=== PATIENT | female | born 1935 | race Caucasian/White ===

== ENCOUNTER 2017-11-19 14:13 | Inpatient (IN) | payer OTHER ==
[~2017-11-19] VITALS: Ht 165.1 cm; Wt 65.9 kg
[2017-11-19 15:22] LABS: BASOPHIL % 0.3 % (0-2)
[2017-11-19 15:25] LABS: CALCIUM 9.8 mg/dL (8.5-10.1); CARBON DIOXIDE 23.5 mmol/L (21-32); CHLORIDE SERUM 102 mmol/L (98-107); CREATININE SERUM 0.9 mg/dL (0.6-1.0); GLUCOSE SERUM 207 mg/dL (74-106); SODIUM SERUM 139 mmol/L (136-145)
[2017-11-19] MEDS ORDERED: ASPIR 8181 MG PO (15:32)
[2017-11-19 15:37] LABS: ALBUMIN 4.2 g/dL (3.4-5.0); ALKALINE PHOSPHATASE 67 U/L (46-116); ALT/SGPT 48 U/L (14-59); AST/SGOT 43 U/L (15-37); BILIRUBIN TOTAL 0.9 mg/dL (0.20-1.00); FREE T4 1.47 ng/dL (0.76-1.46)
[2017-11-19 15:39] LABS: TOTAL PROTEIN, SERUM 8.3 g/dL (6.4-8.2)
[2017-11-19 15:46] LABS: RED CELL DISTRIBUTION WIDTH 15.3 % (11.5-14.5)
[2017-11-19 15:47] LABS: PLATELET COUNT 174 x10^3mcL (130-400)
[2017-11-19 17:28] LABS: CHOLESTEROL/HDL RATIO 2.8; MAGNESIUM 2.1 mg/dL (1.8-2.4); PHOSPHOROUS 3.1 mg/dL (2.5-4.9)
[2017-11-19 17:43] VITALS: BP 156/77
[2017-11-19 21:07] VITALS: BP 150/81
[2017-11-20 06:54] VITALS: BP 153/90
[2017-11-20 07:38] LABS: BASOPHIL % 0.9 % (0-2); PLATELET COUNT 192 x10^3mcL (130-400)
[2017-11-20 07:49] LABS: RED CELL DISTRIBUTION WIDTH 15.1 % (11.5-14.5)
[2017-11-20 08:00] VITALS: BP 159/98
[2017-11-20 08:20] LABS: UA SPECIFIC GRAVITY >=1.030 (1.005-1.035); microscopic required? YES; urine erythrocyte 1+ (NEGATIVE)
[2017-11-20 08:29] LABS: CARBON DIOXIDE 23.5 mmol/L (21-32); CHLORIDE SERUM 106 mmol/L (98-107); CREATININE SERUM 0.8 mg/dL (0.6-1.0); GLUCOSE SERUM 111 mg/dL (74-106); MAGNESIUM 2.2 mg/dL (1.8-2.4); PHOSPHOROUS 3.1 mg/dL (2.5-4.9); POTASSIUM SERUM 3.9 mmol/L (3.5-5.1); SODIUM SERUM 141 mmol/L (136-145)
[2017-11-20 08:38] LABS: AMPHETAMINE QUAL UR NONE DETECTED (NEG <=1000)
[2017-11-20 21:12] VITALS: BP 132/88
[2017-11-21 05:13] VITALS: BP 124/85
[2017-11-21 08:30] VITALS: BP 130/63
[2017-11-21 14:19] VITALS: BP 138/78
[2017-11-21 17:17] VITALS: BP 139/58
[2017-11-21 21:04] VITALS: BP 144/96
[2017-11-22 05:37] VITALS: BP 137/89
[2017-11-22 09:32] VITALS: BP 139/81
[2017-11-22 13:05] VITALS: BP 133/63
[2017-11-22] MEDS ORDERED: TOP50 PO (13:52)
[2017-11-22] MEDS ORDERED: XARELTO20 M1 PO (13:54)
[2017-11-22] MEDS ORDERED: ZES10 PO (13:54)
[2017-11-22 14:27] VITALS: BP 133/63
== END 2017-11-22 16:30 | disposition home or self-care (01) | DRG 291 ==
LOC: ED 14:13 → DU 16:07
PROVIDERS: Emergency Medicine; Family Medicine
DX: I50.43 Acute on chronic combined systolic (congestive) and diastolic (congestive) heart failure (principal); N17.0 Acute kidney failure with tubular necrosis; I48.91 Unspecified atrial fibrillation; K21.9 Gastro-esophageal reflux disease without esophagitis; Z90.710 Acquired absence of both cervix and uterus
CPT/HCPCS: 83880; 84439; 87804; 97110-GP; 97530-GP; G0480; J1644; J1940; J3490; J7030; Q0092

== ENCOUNTER 2019-01-07 23:20 | Inpatient (IN) | payer OTHER ==
[~2019-01-07] VITALS: Ht 165.1 cm; Wt 55.3 kg
[~2019-01-07 23:20] MED LIST: ASPIR 8181 MG PO; TOP50 PO; XARELTO20 M1 PO; ZES10 PO
[2019-01-07 23:31] VITALS: Ht 165.1 cm; Wt 55.3 kg
--- NOTE | 2019-01-08 01:09 | NUR ---
MEDICATIONS GIVEN PER ORDER. VITALS STABLE. R-18 O2-94% P-74. PRE MORPHINE. NO S/S OF DISTRESS. RESPIRSTIONS E/U
--- NOTE | 2019-01-08 01:18 | NUR ---
PT TO CT VIA WC, NAD NOTED.
[2019-01-08 01:20] LABS: BASOPHIL % 0.4 % (0-2); PLATELET COUNT 199 x10^3mcL (130-400)
[2019-01-08 01:24] LABS: RED CELL DISTRIBUTION WIDTH 15.6 % (11.5-14.5)
--- NOTE | 2019-01-08 01:28 | NUR ---
PT RETURNED FROM CT VIA WC, NAD NOTED. PORTABLE XRAY AT BEDSIDE.
[2019-01-08 01:30] LABS: CALCIUM 9.2 mg/dL (8.5-10.1); CARBON DIOXIDE 27.1 mmol/L (21-32); CHLORIDE SERUM 102 mmol/L (98-107); CREATININE SERUM 0.7 mg/dL (0.6-1.0); GLUCOSE SERUM 196 mg/dL (74-106); POTASSIUM SERUM 3.4 mmol/L (3.5-5.1); SODIUM SERUM 138 mmol/L (136-145)
[2019-01-08 01:41] LABS: ALKALINE PHOSPHATASE 82 U/L (46-116); ALT/SGPT 78 U/L (14-59); AST/SGOT 61 U/L (15-37); BILIRUBIN TOTAL 1.2 mg/dL (0.20-1.00); FREE T4 1.11 ng/dL (0.76-1.46); TOTAL PROTEIN, SERUM 8.4 g/dL (6.4-8.2)
--- NOTE | 2019-01-08 01:49 | NUR ---
JOE HERNANDEZ AT BEDSIDE FOR EKG.
--- NOTE | 2019-01-08 03:46 | NUR ---
PATIENT ON GURNEY- NO S/S OF DISTRESS. BREATHING EVEN AND UNLABORED. SAFETY CHECK OF ROOM COMPLETE. CAM IN LOW POSITON, SIDE RAILS UP FOR SAFETY. WILL CONTINUE TO MONITOR.
--- NOTE | 2019-01-08 04:55 | NUR ---
PT IN POSITION OF COMFORT RESPS E/U CALL LIGHT WITHIN REACH
--- NOTE | 2019-01-08 05:46 | NUR ---
PT NEEDS ASSISTANCE VOIDING. PT TOLERATED BEING PLACED ON SURGICAL BEDPAN URINE SPECIMEN COLLECTED, DIPPED, AND SENT TO LAB
--- NOTE | 2019-01-08 06:55 | NUR ---
PT RECIEVED FROM ER IN STABLE CONDITION,MADE COMFORTABLE IN BED WILL ENDORSED TO THE AM NURSE
[2019-01-08 07:01] LABS: UA SPECIFIC GRAVITY 1.025 (1.005-1.035); microscopic required? YES; urine erythrocyte TRACE (NEGATIVE)
--- NOTE | 2019-01-08 07:18 | NUR ---
PT IS NEW ADMISSION. RECEIVED PT'S REPORT FROM LEAVING NURSE. PT REST ON BED AA/O X3, NO COMPLAIN OF PAIN AT THIS TIME. PT BREATHING ON RA, EVEN, UNLABORED. IV SITE SALINE LOCK AT THIS TIME. WILL CONTINUE ADMISSION ASSESSMENT.
[2019-01-08 08:59] VITALS: BP 128/71
--- NOTE | 2019-01-08 12:34 | NUR ---
DR. CARLIN TALKED TO PT, XERALTO WILL BE HELD FOR POSS SURGERY.
[2019-01-08 12:56] VITALS: BP 143/68
[2019-01-08 18:02] VITALS: BP 130/62
--- NOTE | 2019-01-08 18:48 | NUR ---
PT REST ON BED, NO COMPLAIN OF PAIN. PT BREATHING ON RA, EVEN, UNLABORED. XERATOL IS HELD. PT USED BED SKY WITH ASSIST. IV SITE SALINE LOCK PER ORDER.
--- NOTE | 2019-01-08 19:10 | NUR ---
RECEIVED REPORT FROM DAY SHIFT RN. PT RESTING IN BED WITH EYES CLOSED. EASILY AROUSABLE WITH VERBAL STIMULI. ORIENTED X4. NO SOB ON ROOM AIR. NO C/O PAIN AT THIS TIME. IV TO LEFT HAND, INTACT. SAFETY MEASURES IN PLACE. BED IN LOWEST POSITION. SIDE RAILS UP X2. DEMONSTRATED HOW TO USE THE CALL LIGHT FOR ASSISTANCE. CALL LIGHT WITHN REACH.
[2019-01-08 21:40] VITALS: BP 96/63
--- NOTE | 2019-01-09 01:03 | NUR ---
PT C/O SHARP PAIN 10/10 TO RIGHT GROIN. MEDICATED WITH NORCO.
--- NOTE | 2019-01-09 02:03 | NUR ---
PT RESTING WITH EYES CLOSED. NO SOB ON ROOM AIR. NO FACIAL GRIMACING. NO DISTRESS NOTED. CALL LIGHT WITHIN REACH.
[2019-01-09 05:47] VITALS: BP 138/80
--- NOTE | 2019-01-09 07:00 | NUR ---
PT SLEPT WELL DURING SHIFT. NO SOB ON ROOM AIR. NO DISTRESS NOTED. SAFETY MEASURES MAINTAINED. ALL NEEDS ATTENDED TO. CALL LIGHT WITHIN REACH. WILL ENDORSE CARE TO DAY SHIFT RN.
--- NOTE | 2019-01-09 07:20 | NUR ---
PT IS AAOX. RESP EVEN AND UNLABORED. TELE [address] READING AFIB, HR 106. IV CATH N/S LOCKED TO , SITE WNL. SKIN CDI, NO EDEMA. PT DENIES PAIN AND DISCOMFORT AT THIS TIME. CALL LIGHT WITHIN REACH. BED ALARM ON. FALL PROTOCOL IN PLACE.
--- NOTE | 2019-01-09 08:58 | NUR ---
PT HR NOTED INCREASED TO 122 BPM THEN DECREASING TO 106 BPM. METOPROLOL 50MG PO GIVEN. ALL DUE MEDS GIVEN AND TOLERATED WELL. RESP EVEN AND UNLABORED. NO SOB OR COUGH NOTED. PT DENIES PALPITATIONS, CHEST PAIN OR PRESSURE. PT HAS PAIN 7/10 R THIGH. NORCO WILL BE GIVEN. CALL LIGHT WITHIN REACH.
[2019-01-09 09:13] LABS: CALCIUM 8.7 mg/dL (8.5-10.1); CARBON DIOXIDE 28.2 mmol/L (21-32); CHLORIDE SERUM 105 mmol/L (98-107); CREATININE SERUM 0.7 mg/dL (0.6-1.0); GLUCOSE SERUM 123 mg/dL (74-106); POTASSIUM SERUM 4.4 mmol/L (3.5-5.1); SODIUM SERUM 139 mmol/L (136-145)
[2019-01-09 10:01] VITALS: BP 130/81
--- NOTE | 2019-01-09 12:30 | NUR ---
PT IS SLEEPING IN BED BUT EASILY AROUSABLE. RESP EVEN AND UNLABORED. NO DISTRESS NOTED. CALL LIGHT WITHIN REACH.
[2019-01-09 14:12] VITALS: BP 121/68
--- NOTE | 2019-01-09 15:36 | NUR ---
PT IS IN BED AWAKE. RESP EVEN AND UNLABORED. NO S/S OF DISTRESS NOTED. DENIES PAIN OR DISCOMFORT. CALL LIGHT WITHIN REACH.
[2019-01-09 17:56] VITALS: BP 160/79
--- NOTE | 2019-01-09 18:45 | NUR ---
PT IS AAOX4. TELE [address] READING NSR. RESP EVEN AND UNLABORED. NO DISTRESS NOTED. DENIES PAIN. IV CATH TO LH N/S LOCKED. SITE WNL. PT HAS R HIP FRACTURE BUT WAS ABLE TO TURN AND REPOSITION SELF THROUGH OUT DAY. WILL ENDORSE ALL CARE TO NOC RN.
--- NOTE | 2019-01-09 18:50 | NUR ---
NORCO PO GIVEN FOR LEG PAIN 02/25. FLUIDS ENCORAGED. PT TURNED AND REPOSITIONED FOR COMFORT. RESP EVEN AND UNLABORED. CALL LIGHT WITHIN REACH.
--- NOTE | 2019-01-09 19:39 | NUR ---
RECEIVED PT FROM DAY SHIFT RN. PT AAOX4 DENIES HEADACHE OR DIZZINESS. TELE #25 AFIB. PT DENIES CHEST PAIN OR PRESSURE. LUNG SOUNDS DIMININSHED ON RA WITH NO SOB NOTED. RIGHT KNEE EDEMA NOTED. IV LEFT HAND PATENT, SL. GENERALIZED WEAKNESS NOTED. NO SIGNS OF ACUTE DISTRESS NOTED. SAFETY PRECAUTIONS IN PLACE. CALL BUTTON WITHIN REACH. WILL CONTINUE TO MONITOR.
[2019-01-09 21:38] VITALS: BP 144/76
--- NOTE | 2019-01-09 22:25 | NUR ---
PER PATIENT REQUESTED TO SPEAK TO DOCTOR BEFORE SIGNING THE CONSENT FOR SURGERY TOMORROW. WILL ENDORSE IN THE AM.
--- NOTE | 2019-01-10 00:32 | NUR ---
PT REPORTED HAVING RIGHT KNEE PAIN, MEDICATED PER EMAR. WILL CONTINUE TO MONITOR.
--- NOTE | 2019-01-10 00:51 | NUR ---
PLACED PT ON THE BEDPAN, AND REPOSITIONED.
[2019-01-10 05:36] VITALS: BP 154/83
--- NOTE | 2019-01-10 05:37 | NUR ---
PT REPORTED HAVING RIGHT KNEE PAIN, MEDICATED PER EMAR. WILL CONTINUE TO MONITOR.
--- NOTE | 2019-01-10 06:29 | NUR ---
PT SLEPT MOST OF THE NIGHT WITH NO SIGNS OF DISTRESS. IV PATENT, SL. BREATHING EVEN AND UNLABORED ON RA WITH NO SOB NOTED. PT REPORTED HAVING RIGHT KNEE PAIN THROUGHOUT THE NIGHT, MEDICATED PER EMAR WITH RELIEF. CALL BUTTON WITHIN REACH. SAFETY PRECAUTIONS IN PLACE. WILL CONTINUE TO MONITOR AND ENDORSE CARE TO DAY SHIFT RN.
[2019-01-10 07:00] LABS: BASOPHIL % 0.5 % (0-2); PLATELET COUNT 147 x10^3mcL (130-400)
[2019-01-10 07:21] LABS: CALCIUM 8.3 mg/dL (8.5-10.1); CARBON DIOXIDE 26.7 mmol/L (21-32); CHLORIDE SERUM 105 mmol/L (98-107); CREATININE SERUM 0.6 mg/dL (0.6-1.0); GLUCOSE SERUM 85 mg/dL (74-106); POTASSIUM SERUM 4.5 mmol/L (3.5-5.1); SODIUM SERUM 139 mmol/L (136-145)
--- NOTE | 2019-01-10 07:33 | NUR ---
PT AWAKE, BREATHING EVEN AND UNLABORED WITH NO SIGNS OF DISTRESS NOTED. IV PATENT, SL. NO SIGNS OF ACUTE DISTRESS. SAFETY PRECAUTIONS IN PLACE. ENDORSED CARE TO DAY SHIFT RN, ALL QUESTIONS ADDRESSED.
[2019-01-10 07:54] LABS: RED CELL DISTRIBUTION WIDTH 15.2 % (11.5-14.5)
--- NOTE | 2019-01-10 09:07 | NUR ---
MORPHINE 1MG IVP GIVEN FOR R HIP PAIN 03/27. RESP EVEN AND UNLABORED. FLUIDS ENCOURAGED. HEPARIN HELD DUE TO PROCEDURE TODAY. ZESTRIL HELD DUE TO MD ORDERS. NYDIA WIPES APPLIED FOR PROCEDURE. PT TAUGHT TO TURN AND REPOSITION SELF FREQUENTLY. PT DEMONSTRATED UNDERSTANDING. CALL LIGHT WITHIN REACH. BED ALARM ON.
--- NOTE | 2019-01-10 09:31 | NUR ---
RECEIVED CALL FROM DR. CARLIN, THE WOULD LIKE THE PT TO HAVE METOPROLOL 5MG IVP X1 NOW FOR HIGH HR 98-100BPM. DR. CARLIN STATED HE WILL PUT THE ORDER IN.
--- NOTE | 2019-01-10 10:11 | NUR ---
LOPRESSOR 5MG IVP GIVEN FOR INCREASED HR. PT DENIES CHEST PAIN OR PRESSURE. RESP EVEN AND UNLABORED. CALL LIGHT WITHIN REACH. BED IN LOW POSITION.
--- NOTE | 2019-01-10 12:27 | NUR ---
PT TAKEN TO O/R FOR RIGHT HIP REDUCTION.
[2019-01-10 12:33] VITALS: BP 150/91
--- NOTE | 2019-01-10 15:56 | NUR ---
PT BACK FROM PROCEDURE, R HIP ORIF WITH BIPOLAR PROTHESIS. PT HAS ON INCISION ON R THIGH CLOSED WITH SUTURES ANS ROLY COVERED WITH APDAPTIC 4X4 AND TAPE. CDI. PT RECEIVED ONE LITER LR. EBL 200ML. ALFREDO CATH PLACE, NOW DRAINING CLEAR YELLOW URINE TO GRAVITY. STAT LOCK TO L THIGH. VS: 97/4, 91, 18, 126/64, 98% ON R/A. PT DENIES PAIN OR DISCOMFORT AT THIS TIME. RESP EVEN AND UNLABORED. NO DISTRESS NOTED. P/T CALLED TO CONFIRM PLACEMENT OF TRAPEZE. BED IN LOWEST POSTION. CALL LIGHT WITHIN REACH. BED ALARM ON.
--- NOTE | 2019-01-10 17:15 | NUR ---
TRAPEZE APPLIED TO BED AND PT EDUCATED BY P/T ON HOW TO USE IT. PT DENIES PAIN AT THIS TIME. RESP EVEN AND UNLABORED. PT WAS ABLE TO REPOSITION SELF FOR COMFORT. CALL LIGHT WITHIN REACH. BED ALARM ON. FRIEND AT BEDSIDE VISITING.
[2019-01-10 18:02] VITALS: BP 122/57
--- NOTE | 2019-01-10 18:20 | NUR ---
REPORTED TO DR. MARIANO PT IS RECEIVING MORPHINE AND NORCO WITH C/O CONSTIPATION. RECEIVED ORDER FOR COLACE 100MG PO BID. ORDER NOTED AND CARRIED OUT. PT MADE AWARE.
--- NOTE | 2019-01-10 18:32 | NUR ---
PT IS AAOX4. RESP EVEN AND UNLABORED. TELE [address] READING AFIB. PT IS S/P ORIF WITH INCISION TO R HIP COVERED WITH ABDAPTIC 4X4 AND TAPE, AREA IS CDI. IV TO LH PATENT, NS LOCKED. SITE WNL. NO S/S OF INFECTION NOTED. PT DENIES PAIN AT THIS TIME. CALL LIGHT WITHIN REACH. BED ALARM ON. BED IN LOWEST POSITION. WILL ENDORSE ALL CARE TO NOC RN.
--- NOTE | 2019-01-10 18:55 | NUR ---
CHANGE DRESSING TO PT GTUBE SITE. REMOVED OLD DRESSING, CLEANSED AREA WITH NS, PATTED DRY AND APPLIED GAUZE AND PAPER TAPE. AREA IS CDI. PT NOTED WITH 30ML RESIDUAL. RESIDUAL PUT BACK INTO GTUBE. PT TOLERATED PROCEDURE WELL.
--- NOTE | 2019-01-10 19:45 | NUR ---
RECEIVED PT FROM DAY SHIFT RN. PT AAOX4 DENIES HEADACHE OR DIZZINESS. TELE #25 AFIB HR 95. PT DENIES CHEST PAIN OR PRESSURE. LUNG SOUNDS DIMININSHED ON RA WITH NO SOB NOTED. RIGHT HIP S/P COVERED IN DRESSING, CDI. ABDUCTOR PILLOW IN PLACE. IV LEFT HAND PATENT, SL. F/C IN PLACE DRAINIG YELLOW URINE. GENERALIZED WEAKNESS NOTED. NO SIGNS OF ACUTE DISTRESS NOTED. SAFETY PRECAUTIONS IN PLACE. CALL BUTTON WITHIN REACH. WILL CONTINUE TO MONITOR.
--- NOTE | 2019-01-10 21:10 | NUR ---
PT REPORTED HAVING PAIN ON RIGHT HIP 05/28. MEDICATED PER EMAR. WILL MONITOR.
[2019-01-10 21:25] VITALS: BP 139/74
--- NOTE | 2019-01-11 00:17 | NUR ---
PT RESTING, BREATHING EVEN AND UNLABORED WITH NO SOB NOTED. NO SIGNS OF ACUTE DISTRESS NOTED. SAFETY PRECAUTIONS IN PLACE. CALL BUTTON WITHIN REACH. WILL CONITNUE TO MONITOR.
--- NOTE | 2019-01-11 02:50 | NUR ---
PT RESTING, BREATHING EVEN AND UNLABORED NO SOB NOTED. NO SIGNS OF ACUTE DISTRESS NOTED. SAFETY PRECAUTIONS IN PLACE. WILL MONITOR.
--- NOTE | 2019-01-11 05:38 | NUR ---
PT SLEPT MOST OF THE NIGHT WITH NO SIGNS OF DISTRESS. IV PATENT, SL. BREATHING EVEN AND UNLABORED ON RA WITH NO SOB NOTED. PT REPORTED HAVING RIGHT KNEE PAIN THROUGHOUT THE NIGHT, MEDICATED PER EMAR WITH RELIEF. RIGHT HIP S/P WITH INCISION AND COVERED W/ DRESSING. ABDUCTOR PILLOW IN PLACE. CALL BUTTON WITHIN REACH. SAFETY PRECAUTIONS IN PLACE. WILL CONTINUE TO MONITOR AND ENDORSE CARE TO DAY SHIFT RN.
[2019-01-11 06:12] VITALS: BP 149/90
--- NOTE | 2019-01-11 06:48 | NUR ---
PT REPORTED RIGHT KNEE PAIN, MEDICATED PER EMAR, WILL CONTINUE TO MONITOR.
[2019-01-11 06:58] LABS: BASOPHIL % 0.2 % (0-2); PLATELET COUNT 169 x10^3mcL (130-400)
[2019-01-11 07:08] LABS: RED CELL DISTRIBUTION WIDTH 15.1 % (11.5-14.5)
--- NOTE | 2019-01-11 07:14 | NUR ---
RECEIVED REPORT FROM CONCHIS MANCIA. PT RESTING COMFORTABLY IN BED WITH TRAPEZE IN PLACE. ADDUCTOR PILLOW IN PLACE. TELE # [address]. PT DENIES CHEST PAIN. PT ON ROOM AIR. NO C/O SOB AND NO DSITRESS NOTED. IV TO LT HAND IS SALINE LOCKED. NO REDNESS OR PAIN. INCISION TO RT HIP IS COVERED WITH ISLAND DRESSING. CDI. NO C/O PAIN. ALL QUESTIONS AND CONCERNS ADDRESSED.
[2019-01-11 07:17] LABS: CALCIUM 8.1 mg/dL (8.5-10.1); CARBON DIOXIDE 22.9 mmol/L (21-32); CHLORIDE SERUM 103 mmol/L (98-107); CREATININE SERUM 0.6 mg/dL (0.6-1.0); GLUCOSE SERUM 127 mg/dL (74-106); POTASSIUM SERUM 4.1 mmol/L (3.5-5.1); SODIUM SERUM 138 mmol/L (136-145)
--- NOTE | 2019-01-11 07:37 | NUR ---
PT AWAKE DENIES PAIN. NO SIGNS OF DISTRESS NOTED. ENDORSED CARE TO DAY SHIFT RN, ALL QUESTIONS ADDRESSED.
--- NOTE | 2019-01-11 08:09 | NUR ---
SPOKE WITH DR MARIANO TO NOTIFY OF PT SUSTAINING HR > 140. DR MARIANO INSTRUCTED TO NOTIFY DR CARLIN.
--- NOTE | 2019-01-11 09:22 | NUR ---
DR MARIANO IN TO SEE AND ASSESS PATIENT .
[2019-01-11 09:42] VITALS: BP 101/59
--- NOTE | 2019-01-11 10:13 | NUR ---
NOTIFIED DR CARLIN THAT PT HR IS NOW IN THE 90S. IV INFILTRATED AND THEREFORE IV LOPRESSOR AND BOLUS HAVE NOT BEEN GIVEN. DR CARLIN OK WITH HR NOW AND ORDERED OK TO NOT GIVE BOLUS AND IV LOPRESSOR.
[2019-01-11 12:49] VITALS: BP 117/64
[2019-01-11 18:01] VITALS: BP 133/48
--- NOTE | 2019-01-11 19:00 | NUR ---
PT RESTING COMFORTABLY IN BED WITH TRAPEZE AT BEDSIDE. ABDUCTOR PILLOW IN PLACE. NO C/O PAIN THROUGHOUT THE DAY. IV TO LFA IS PATENT AND INTACT. NO REDNESS OR PAIN. TELE # [address] PT DENIES CHEST PAIN. PT ON ROOM AIR. NO C/O SOB AND NO DISTRESS NOTED. WILL ENDORSE ALL TO ONCOMING NURSE.
--- NOTE | 2019-01-11 19:08 | NUR ---
DR CARLIN PAGED TO NOTIFY OF PT HR FLUCTUATING FROM 105-130. AWAITING CALL BACK.
--- NOTE | 2019-01-11 19:30 | NUR ---
RECEIVED PT FROM DAY SHIFT RN. PT IS AA&O X4 AND ABLE TO FOLLOW COMMANDS. PT DENIES CHEST PAIN AND SHORTNESS OF BREATH ON ROOM AIR. NO USE OF ACCESSORY MUSCLES OR LABORED BREATHING ON ASSESSMENT. LUNG SOUNDS ARE CTA ON ROOM AIR. ABDUCTION PILLOW IN PLACE. TRAPEZE BAR IN PLACE. BANDAGE TO RIGHT HIP SURGICAL SITE CLEAN DRY AND INTACT. PT HAS A LFA IV THAT IS CLEAN DRY AND INTACT AT THIS TIME. TELE MONITOR IS IN PLACE. PT DENIES ANY PAIN AT THIS TIME. SAFFETY MEASURES IN EFFECT. BED IN LOWEST POSITION. CALL LIGHT WITHIN REACH. WILL CONTINUE TO MONITOR.
[2019-01-11 21:33] VITALS: BP 121/55
--- NOTE | 2019-01-11 21:33 | NUR ---
PT TEMPERATURE 100. ICE PACKS GIVEN. WILL REASSESS.
--- NOTE | 2019-01-11 22:31 | NUR ---
PT COMPLAINED OF HIP PAIN AT SURGICAL SITE. 04/27. ADMINISTERED NORCO. (SEE MAR). COMFORT MEASURES IN PLACE. RELAXATION TECHNIQUES AND DEEP BREATHING ENCOURAGED.
[2019-01-12 06:14] VITALS: BP 114/57
[2019-01-12 06:29] LABS: BASOPHIL % 0.4 % (0-2); PLATELET COUNT 180 x10^3mcL (130-400)
[2019-01-12 06:32] LABS: RED CELL DISTRIBUTION WIDTH 15.3 % (11.5-14.5)
--- NOTE | 2019-01-12 06:42 | NUR ---
PT SLEPT THROUGHOUT THE NIGHT NIGHT. DENIES CHEST PAIN OR SHORTNESS OF BREATH. CALL LIGHT WITHIN REACH. WILL ENDORSE TO DAY SHIFT RN.
[2019-01-12 07:06] LABS: CALCIUM 8.4 mg/dL (8.5-10.1); CARBON DIOXIDE 26.6 mmol/L (21-32); CHLORIDE SERUM 104 mmol/L (98-107); CREATININE SERUM 0.7 mg/dL (0.6-1.0); GLUCOSE SERUM 99 mg/dL (74-106); POTASSIUM SERUM 4.4 mmol/L (3.5-5.1); SODIUM SERUM 137 mmol/L (136-145)
--- NOTE | 2019-01-12 07:18 | NUR ---
RECEIVED REPORT FROM ANN MARIE MANCIA. PT RESTING COMFROTABLY IN BED WITH TRAPEZE AT BEDSIDE. IV TO LFA IS PATENT AND INTACT. NO REDNESS OR PAIN. TELE #[address] PT DENIES CHEST PAIN. PT ON ROOM AIR. NO C/O SOB AND NO DISTRESS NOTED. ABDUCTOR PILLOW IN PLACE. ALL QUESTIONS AND CONCERNS ADDRESSED.
[2019-01-12 10:04] VITALS: BP 105/69
[2019-01-12 13:00] VITALS: BP 109/46
--- NOTE | 2019-01-12 15:17 | NUR ---
IN TO SEE PATIENT AND ASSESS NEEDS. PT RESTING COMFORTABLY IN BED WITH FAMILY AT BEDSIDE. ALL NEEDS MET.
[2019-01-12 17:14] VITALS: BP 125/62
--- NOTE | 2019-01-12 19:30 | NUR ---
RECEIVED PT RESTING IN BED, AOX4, DENIES ROBLES/DIZZINESS. PT S/P ORIF RT HIP, ISLAND DSG TO RT HIP, CDI. ABDUCTOR PILLOW IN PLACE, CAP REFILL < 3SEC. TELE #25 A FIB, 94, PT REPORTS TAKING XARELTO AT HOME, CURRENTLY A FIB MANAGED WITH METOPROLOL 50MG, WILL MEDICATE PER ORDER. PT ON HEP SQ. RESP EVEN AND UNLABORED ON RA, DENIES SOB. ABD SOFT, FLAT, DENIES ABD PAIN. PT WITH ALFREDO CTAH DRAINING YELLOW URINE TO GRAVITY, DENIES DYSURIA. GENERALIZED WEAKNESS, TRAPEZE IN PLACE. PT REPORTS PAIN UNDER CONTROL AT THIS TIME. IV SITE TO LFA, SALINE LOCKED. NO REDNESS, SWELLING OR PAIN NOTED. ALL COMFORT AND SAFETY MEASURES PROVIDED FOR, CALL LIGHT WITHIN REACH, BED IN LOWEST POSITION, WILL CONTINUE TO MONITOR.
--- NOTE | 2019-01-12 19:45 | NUR ---
REPORT GIVEN TO KEREN MANCIA. PT RESTING COMFORTABLY IN BED WITH TRAPEZE AT BEDSIDE. ALL NEEDS MET. ALL QUESTIONS AND CONCERNS ADDRESSED. ALL CARES ENDORSED.
[2019-01-12 20:46] VITALS: BP 105/54
--- NOTE | 2019-01-13 00:14 | NUR ---
PT USED CALL LIGHT TO REQUEST PAIN MEDICATION, WILL MEDICATE PER ORDER.
--- NOTE | 2019-01-13 05:15 | NUR ---
PT RESTED IN INTERVALS DURING SHIFT, NO ACUTE CHANGES OCCURRING OVERNIGHT. PT MEDICATED X1 WITH NORCO WITH GOOD RELIEF. PT STILL HAS NOT HAD A BM, PT CONTINUES WITH ALFREDO CATH DRAINING YELLOW URINE. ALFREDO CATH CURRENTLY CLAMPED TO BEGIN BLADDER TRAINING. IV SITE REMAINS PATENT TO LFA SALINE LOCKED. NO REDNESS, SWELLING OR PAIN NOTED. ALL COMFORT AND SAFETY MEASURES PROVIDED FOR, CALL LIGHT WITHIN REACH, BED IN LOWEST POSITION, WILL CONTINUE TO MONITOR.
[2019-01-13 05:34] VITALS: BP 124/65
[2019-01-13 06:21] LABS: PLATELET COUNT 222 x10^3mcL (130-400)
[2019-01-13 06:43] LABS: ALKALINE PHOSPHATASE 73 U/L (46-116); ALT/SGPT 58 U/L (14-59); AST/SGOT 63 U/L (15-37); CALCIUM 8.3 mg/dL (8.5-10.1); CARBON DIOXIDE 26.7 mmol/L (21-32); CHLORIDE SERUM 104 mmol/L (98-107); CREATININE SERUM 0.6 mg/dL (0.6-1.0); PHOSPHOROUS 2.4 mg/dL (2.5-4.9); POTASSIUM SERUM 4.1 mmol/L (3.5-5.1); SODIUM SERUM 138 mmol/L (136-145)
[2019-01-13 07:02] LABS: RED CELL DISTRIBUTION WIDTH 14.8 % (11.5-14.5)
--- NOTE | 2019-01-13 07:36 | NUR ---
ENDORSED ALL CARE TO DAYSHIFT NURSE, NO ACUTE DISTRESS NOTED. ALL QUESTIONS AND CONCERNS ADDRESSED, CALL LIGHT WITHIN REACH, BED IN LOWEST POSITION.
--- NOTE | 2019-01-13 07:53 | NUR ---
CALLED AND LEFT MESSAGE WITH DR MARIANO FOR ORDERS FOR NORCO TO BE RENEWED. PATIENT IS ALREADY REQUESTING FOR PAIN TO [facility]. WILL AWAIT A CALL BACK. JASPREET IS ALERT AND ORIENTED TIMES FOUR. ALFREDO IN PLACE AND BLADDER TRAINING STARTED. SHE HAS BEEN ON HEPARIN AND HX OF HTN AND AFIB. SHE WAS ON XARALTO PRIOR TO THE ADMISSION. HX IS SHE WAS AT THE STORE RETURNING HER CART AHD SHE FELL BREAKING HER HIP. SHE HAD SURGERY WITH DR KAISER. SHE HAS BEEN UP WITH PT BUT IS AFRAID TO USE THE TRAPEZE DUE TO A PREVIOUS MALFUNCTION WITH THE DEVICE. SHE HAS BEEN WITHOUT STOOL SINCE THE .
[2019-01-13 07:55] LABS: GLUCOSE SERUM 89 mg/dL (74-106); MAGNESIUM 2.1 mg/dL (1.8-2.4)
[2019-01-13 08:32] LABS: ALBUMIN 2.1 g/dL (3.4-5.0); TOTAL PROTEIN, SERUM 5.7 g/dL (6.4-8.2)
--- NOTE | 2019-01-13 09:03 | NUR ---
LEFT MESSAGE FOR DR DUARTE FOR REORDER OF NORCO FOR PAIN.
[2019-01-13 09:49] VITALS: BP 107/55
--- NOTE | 2019-01-13 09:53 | NUR ---
CALLED FOR [facility]HELSEA ORDER AGAIN AND LEFT MESSAGE AND AWAITING CALL BACK AT THIS TIME.
--- NOTE | 2019-01-13 12:02 | NUR ---
SPOKE WITH THE COVERING KIRAN DUARTE AND ORDER OBTAINED AND PLACED FOR CONTINUATION OF THE NORCO FOR PAIN.
[2019-01-13 12:33] VITALS: BP 95/65
--- NOTE | 2019-01-13 13:35 | NUR ---
Intervention/RDN Recommendation(s): 1. Continue on regular diet as tolerated.
--- NOTE | 2019-01-13 13:35 | NUR ---
Initial Nutrition Assessment- Dx: rt hip fracture, a-fib PMHx: a-fib PSHx: none Labs: (01/13) Na 138, K 4.1, Glu 89, BUN 21 H, Cr 0.6, Alb 2.1 L, Ca 8.3 L, Phos 2.4 L, H/H 10.3/30 Meds: ambien, Ativan, colace, ferrous sulfate, Lopressor, morphine sulfate, norco, phenergan, sodium chl 0.9%, Tylenol Diet: regular PO Intakes: (01/08) B: 20%, L: 80%, D: 50%; (01/09) D: 50%, (01/10) NPO at B; L: 40%; (01/11) B: 40%, L: 60%; (01/12) 100%, (01/13) B: 100%; overall average 60%, inadquate Ht: 165.1 cm/65 inches/5'5" Wt: 55.338 kg/122 pounds BMI: 20.3 kg/m2, underweight for age (> 65 y/o) IBW: 125 pounds/57 kg %IBW: 95% UBW: 150# Age: 83 Food Allergies: NKFA Skin: Theo 20 Edema: none noted GI: Last BM per nursing documentation, no BM since 01/11. Pt admitted with dx: rt hip fracture, a-fib. Per physician progress note (01/11), Pt is s/p hip ORIF POD #2, had episode of AFIB RVR in 140s that morning, improved after receiving routine metoprolol. Pt denies any chest pain or SOB. Pt to continue PT/OT. RDN visited with Pt, Pt was up, awake, reading, very pleasant. She had a tuna salad, scalloped potatoes, and ice cream for lunch. She ate half a sandwich, a few scoops of potatoes, and all of her ice cream. She reports feeling full and satisfied with just having eaten that. She declines offer for ONS. She denies diet/food-related concerns and questions at this time. Problem with: N: no V: no D: no C: no Problems with: Chewing: no Swallowing: no Current appetite: good Recent wt changes: Pt reports having lost ~28#. She states that she used to weigh 150# but then was admitted to the hospital for heart-related issues (unable to recall date/time), and ever since then she started to lose wt and was unable to put the weigh back on despite not making any changes to her diet. Vitamin/Supplement: none Special Diet at Home: none. Her PCP advised to her to follow a heart healthy diet but she declined and insists of eating whatever she wants because she is getting old. Physical activity: had been doing some light walking Education: N/A Estimated Nutritional Needs Based on actual body weight of 55 kg. Energy: 0352-9931 kcal/d (30-35 kcal/kg for underweight, older adult maintenance) Protein: 55-66 gm/d (1-1.2 gm/kg for underweight, older adult maintenance) Fluid: 7504-8757 mL/d (1 mL/kcal) or per MD. Nutrition Diagnosis 1. Inadequate oral intakes related to poor appetite as evidenced by overall average of 40%, Pt meeting < 75% estimated needs. Intervention/RDN Recommendation(s): 1. Continue on regular diet as tolerated. Monitor/Evaluate Goal: Intake via PO intakes to meet at least 75% of estimated needs with acceptable tolerance within 2-3 days. Monitor: PO intakes and/or nutrition support tolerance, Labs, GI function, Skin integrity, Weights. F/U in 3-5 days as moderate risk (01/16-)
[2019-01-13 13:47] LABS: ATYPICAL LYMPH 1 %; BAND NEUTROPHIL 0 % (0-10); BASOPHIL 0 % (0-2); MONOCYTE 4 % (0-7); PLATELET MORPHOLOGY PLATELETS DECREASED; SEGMENTED NEUTROPHILS 60 % (37-75)
[2019-01-13 13:49] LABS: rbc morphology (normal/abnorm) ABNORMAL (NORMAL)
--- NOTE | 2019-01-13 17:09 | NUR ---
THE NORCO GIVEN EARLIER WAS EFFECTIVE AND PATIENT HAS BEEN GIVEN THE XARALTO POST A CALL PLACED TO DR MARIANO PER CARDIOLOGY REQUEST TO CONTINUE. THE HEPARIN WAS DISCONTINUED AND WILL CONTINUE TO MONITOR INDICATED.
[2019-01-13 18:26] VITALS: BP 100/50
--- NOTE | 2019-01-13 19:30 | NUR ---
RECEIVED PT RESTING IN BED, AOX4, DENIES ROBLES/DIZZINESS. PT S/P ORIF RT HIP (01/10), DSG IN PLACE TO RT HIP CDI. TELE #25, A FIB, HR 94, PT ON XARELTO. PULSES PALPABLE BILAT, DENIES NUMBNESS/TINGLING IN FEET. RESP EVEN AND UNLABORED ON RA, DENIES SOB. ABD SOFT, FLAT, DENIES ABD PAIN. PT HAS NOT HAD A BM SINCE 01/11, DENIES ABD PAIN. WILL PROVIDE NORCO. PT WITH ALFREDO CATH DRAINING NIC URINE, DENIES DYSURIA. PT WITH TRAPEZE ABOVE BED, ABDUCTOR PILLOW IN PLACE. IV SITE TO [facility], SALINE LOCKED AT THIS TIME. ALL COMFORT AND SAFETY MEASURES PROVIDED FOR, CALL LIGHT WITHIN REACH, BED IN LOWEST POSITION, WILL CONTINUE TO MONITOR.
[2019-01-13 21:45] VITALS: BP 139/61
--- NOTE | 2019-01-13 23:00 | NUR ---
UPON ASSESSMENT OF PT, PT RESTING IN BED WATCHING TV. PT REPORTS PAIN UNDER CONTROL AT THIS TIME, SIMPLY REQUESTING TO BE REPOSITIONED SHE IS READY FOR BED. PT PULLED UP AND CALL COMFORT AND SAFETY MEASURES PROVIDED FOR, CALL JEISON RODRÍGUEZ, BED IN LOWEST POSITION, WILL CONTINUE TO MONITOR.
--- NOTE | 2019-01-14 05:10 | NUR ---
PT RESTED IN INTERVALS DURING SHIFT, NO ACUTE CHANGES OCCURRING OVERNIGHT. PT DENIES PAIN DURING SHIFT, IV SITE REMAINS PATENT TO LFA, NO REDNESS, SWELLING OR PAIN NOTED. PT HAS NOT HAD A BM DURING SHIFT, PT RECEIVED COLACE DURING NIGHT WITH SCHEDULED MEDS. PT CALM AND COOPERATIVE WITH CARE AT THIS TIME, ABDUCTOR PILLOW REMAINS IN PLACE. CAP REFILL <3SEC. DENIES NUMBNESS/TINGLING IN FEET. CALL LIGHT WIHTIN REACH, BED IN LOWEST POSITION, WILL CONTINUE TO MONITOR.
[2019-01-14 05:30] VITALS: BP 123/61
--- NOTE | 2019-01-14 07:30 | NUR ---
RECEIVED PT FROM AUTOMOTIVE GENERAL MANAGER RN. Martín/DOMITILA. TELE#25. DENIES CHEST PAIN/PRESSURE. RESPIRATIONS EQUAL AND UNLABORED ON RA. DENIE SOB. PT DENIES ANY PAIN AT THIS TIME. RT HIP DRESSING CDI, NO DRAINAGED NOTED. ABDDUCTOR PILLOW IN PLACE, TRAPEZE IN PLACE ABOVE BED. IV TO LFA SALINE LOCKED. NO REDNESS OR SWELLING NOTED. WILL CONTINUE TO MONITOR. CALL LIGHT IN REACH. BED IN LOWEST POSITION.
--- NOTE | 2019-01-14 07:47 | NUR ---
ENDORSED ALL CARE TO DAYSHIFT NURSE, NO ACUTE DISTRESS NOTED. ALL QUESTIONS AND CONCERNS ADDRESSED. ALL COMFORT AND SAFETY MEASURES PROVIDED FOR, CALL LIGHT WITHIN REACH, BED IN LOWEST POSITION.
--- NOTE | 2019-01-14 08:47 | NUR ---
PT SITTING UP IN BED. NO ACUTE RESP DISTRESS NOTED ON RA. GIVEN PO MEDS. TOLERATED WELL. PT C/O PAIN 04/27 TO RT HIP. MEDICATED PER EMAR. PT TOLERATED WELL. PT GOSIA AT BEDSIDE. PT HR 140 PER GOSIA WILL WORK WITH PT A LITTLE LATER. PT DENIES CHEST PAIN/PRESSURE. WILL CONTINUE TO MONITOR. CALL LIGHT IN REACH. BED IN LOWEST POSITION.
[2019-01-14 08:54] VITALS: BP 124/50
--- NOTE | 2019-01-14 10:31 | NUR ---
PT WORKING WITH PHYSCIAL THERAPY. TOLERATED WELL. PT SITTING UP IN CHAIR. PT DENIES ANY PAIN AT THIS TIME. NO ACUTE RESP DISTRESS NOTED ON RA. PT INSTRUCTED TO USE CALL LIGHT WHEN NEEDING ASSISTANCE BACK TO BED. PT ENCOURAGED TO SIT IN CHAIR UNTIL LUNCH TIME. WILL CONTINUE TO MONITOR. CALL LIGHT IN REACH. BED IN LOWEST POSITION.
--- NOTE | 2019-01-14 13:30 | NUR ---
PT SITTING UP IN CHAIR AT BEDSIDE. PT ASKING TO BE PUT BACK IN BED. CALLED SERG PHYSICAL THERAPIST TO ASSIST PT BACK TO BED. NO ACUTE RESP DISTRESS NOTED ON THIS TIME. PT DENIES ANY PAIN AT THIS TIME. WILL CONTINUE TO MONITOR. CALL LIGHT IN REACH. BED IN LOWEST POSITION.
--- NOTE | 2019-01-14 16:27 | NUR ---
PHYSICAL THERAPY DAILY NOTES CO-SIGN All documentation done by the Single Wire Saw Operator for 01/14/19 has been reviewed. I agree with the documentation. Reviewed/Co-Signed by: Daphnie Frazier PT Documentation Done by:GOSIA VALDES PTA
--- NOTE | 2019-01-14 16:47 | NUR ---
PHYSICAL THERAPY DAILY NOTES CO-SIGN All documentation done by the Machine Set Up Operator [employer] for 01/14/19 has been reviewed. I agree with the documentation. Reviewed/Co-Signed by: Bryan Sosa PT Documentation Done by:CORNELIO MIRELES CONFERENCE COORDINATOR FOR 01/12/2019
[2019-01-14 17:45] VITALS: BP 120/55
--- NOTE | 2019-01-14 18:50 | NUR ---
PT IN BED RESTING. NO ACUTE RESP DISTRESS NOTED ON RA. IV SALINE LOCKED TO LFA. NO REDNESS OR SWELLING NOTED. PT DENIES ANY PAIN AT THIS TIME. DRESSING TO RT HIP CDI. ABDUCTOR PILLOW IN PLACE. TRAPEZE IN PLACE OVER BED. WILL ENDORSE TO CHROMIUM PLATER RN. CALL LIGHT IN REACH. BED IN LOWEST POSITION.
--- NOTE | 2019-01-14 19:28 | NUR ---
PT RECEIVED A/O X4, ABLE TO MAKE NEEDS KNOWN. TELE #25, DENIES ANY CP/PRESSURE. PULSES PALAPBLE, EDEMA TO RT KNEE. BREATHING IS EVEN AND UNLABORED ON RA, DENIES SOB, NO RESP DISTRESS NOTED. ABD SOFT AND NONDISTENDED, DENIES ANY N/V. ALFREDO CATH IN PLACE DRAINING TO GRAVITY, NIC COLORED URINE NOTED. GENERALIZED WEAKNESS. S/P RT HIP ORIF ON 01/10/19, RT HIP CLOSED WITH ROLY AND COVERED WITH ISLAND DRSG, CDI. ABDUCTOR PILLOW IN PLACE; TRAPEZE IN PLACE ABOVE BED. PT DENIES ANY PAIN AT THIS TIME. SL TO LFA, PATENT AND INTACT, SITE FREE FROM REDNESS OR SWELLING. BED IN LOWEST SETTING, SIDE RAILS UP X2, BED ALARM ON, CALL LIGHT WITHIN REACH. WILL CONT TO MONITOR.
[2019-01-14 21:22] VITALS: BP 122/57
--- NOTE | 2019-01-15 00:30 | NUR ---
PT RESTING IN BED WITH EYES CLOSED, BUT IS EASILY AROUSABLE. BREATHING IS EVEN AND UNLABORED, NO RESP DISTRESS NOTED. PT C/O 02/25 RLE PAIN, PRN NORCO GIVEN ORDERED. NO ACUTE DISTRESS NOTED. BED ALARM ON, CALL LIGHT WITHIN REACH. WILL CONT TO MONITOR.
--- NOTE | 2019-01-15 06:05 | NUR ---
PT SLEPT AT INTERVALS THROUGHOUT THE EVENING. BREATHING IS EVEN AND UNLABORED, NO RESP DISTRESS NOTED. ALFREDO CATH IN PLACE TO GRAVITY, ALFREDO CARE GIVEN. ABDUCTOR PILLOW IN PLACE. SL TO LFA, PATENT AND INTACT, SITE FREE FROM REDNESS OR SWELLING. NO ACUTE CHANGES ENCOUNTERED DURING SHIFT. ALL NEEDS MET. CALL LIGHT WITHIN REACH. WILL ENDORSE CARE TO AM NURSE.
[2019-01-15 06:11] VITALS: BP 119/74
--- NOTE | 2019-01-15 07:10 | NUR ---
RECEIVED PT FROM HONING MACHINE SET UP OPERATOR. PT AWAKE, ALERT. A/OX4. PT ON ROOM AIR WITH NO RESP DISTRESS NOTED. LUNGS CTA. PT ON TELE #25. PT DENIES CHEST PAIN AND HEADACHE AT THIS TIME. PT S/P RIGHT HIP ORIF, RIGHT HIP DRESSING C/D/I. PT HAS ABDUCTOR PILLOW AND TRAPEZE. PT NOTED TO HAVE GENERALIZED WEAKNESS. NO DISCOMFORT OR DISTRESS NOTED AT THIS TIME. IV ACCESS LFA, C/D/I. SALINE LOCKED. PERIPHERAL PULSES PALPABLE, NO EDEMA NOTED. ACTIVE BOWEL SOUNDS NOTED. PT HAS ALFREDO CATH WITH CLEAR YELLOW URINE DRAINING. SAFETY MEASURES IN PLACE, BED LOW AND LOCKED. CALL LIGHT WITHIN REACH. PT INSTRUCTED TO USE CALL LIGHT FOR ANY ASSISTANCE.
--- NOTE | 2019-01-15 07:24 | NUR ---
PT IN NO ACUTE DISTRESS. CONTINUITY OF CARE ENDORSED TO MELANIE MANCIA. ALL QUESTIONS AND CONCERNS ADDRESSED.
[2019-01-15 08:11] VITALS: BP 135/61
--- NOTE | 2019-01-15 08:45 | NUR ---
DUE MEDS ADMINISTERED ORDERED. PT TOLERATED WELL. (SEE EMAR). PT DENIES PAIN AT THIS TIME. WILL CONTINUE TO MONITOR.
[2019-01-15 12:00] VITALS: BP 124/60
--- NOTE | 2019-01-15 12:43 | NUR ---
PT SITTING IN CHAIR AT BEDSIDE LOOKING THROUGH HER BILLS. NO ACUTE DISTRESS OR DISCOMFORT NOTED AT THIS TIME. ALL NEEDS MET AT THIS TIME. SAFETY MAINTAINED. CALL LIGHT WITHIN REACH.
[2019-01-15 13:27] VITALS: BP 117/54; BP 124/60
--- NOTE | 2019-01-15 15:17 | NUR ---
METOPROLOL IV ADMINISTERED OVER 5 MINUTES ORDERED (SEE EMAR) PT TOLERATED WELL. SAFETY COMPANION AWARE OF MED ADMINISTRATION. PT BP 118/69 (80) HR 99. WILL CONTINUE TO MONITOR. SAFETY MEASURES MAINTAINED.
--- NOTE | 2019-01-15 16:14 | NUR ---
PHYSICAL THERAPY DAILY NOTES CO-SIGN All documentation done by the Military Lawyer for 01/15/19 has been reviewed. I agree with the documentation. Reviewed/Co-Signed by: Daphnie Frazier PT Documentation Done by:GOSIA VALDES PTA
[2019-01-15 16:29] VITALS: BP 110/65
--- NOTE | 2019-01-15 17:45 | NUR ---
PT UP IN CHAIR EATING DINNER. PT WANTS TO FINISH DINNER BEFORE TAKING DUE MEDICATION.
--- NOTE | 2019-01-15 18:33 | NUR ---
PT HEARTRATE SUSTAINING BETWEEN 130-140S AT THIS TIME. PAGED DR CARLIN TO MAKE AWARE. PER INSTRUCTIONS PREVIOUSLY GIVEN, PT NOT TO BE DISCHARGED AT THIS TIME. DUE MEDICATIONS ADMINISTERED ORDERED. PT TOLERATED WELL. ALL NEEDS TENDED TO THROUGHOUT SHIFT. WILL CONTINUE TO MONITOR AND ENDORSE CARE TO CENTRIFUGAL SCREEN TENDER.
--- NOTE | 2019-01-15 18:58 | NUR ---
DR CARLIN WITH NEW ORDER TO GIVE CARDIZEM IV PUSH ONE DOSE NOW 15MG. PER DR CARLIN, GIVE METROPOLOL EARLY. WILL ENDORSE TO NIGHT NURSE.
--- NOTE | 2019-01-15 19:32 | NUR ---
RECEIVED AWAKE IN BED, ALERT AND ORIENTED X4. SKIN WARM AND DRY TO TOUCH WITH STAPLED ON THE RIGHT HIP COVERED WITH ISLAND DRESSING. OVERHEAD TRAPEZE IN PLACE TO FACILITATE MOVEMENT AND TURNING. RESPIRATION EVEN AND UNLABORED, NO SOB NOTED. ABDUCTOE PILLOW IN PLACE FRO SUPPORT. ON TELE #25 SHOWS AFIB AT 130/MIN. DR CARLIN GAVE NEW ORDER TO BE GIVEN PENDING PHARMACY VERIFICATION. IV ACCRSS AT THE LFA INTACT AND PATENT , SALINE LOCKED, NO REDNESS/SWELLING NOTED AT THE IV SITE. PLACED CALL LIGHT WITHIN REACH, INSTRUCTED TO CALL FOR ANY ASSISTANCE NEEDED AND VERBALIZED UNDERSTANDING.
--- NOTE | 2019-01-15 19:56 | NUR ---
HR-130/MIN, CARDIZEM 15MG IVP GIVEN ORDERED BY DR CARLIN. WILL CONTINUE TO MONITOR.
--- NOTE | 2019-01-15 20:20 | NUR ---
HR =77/MIN, DENEIS ANY CEHST PAIN/DISCOMFORT. CALL LIGHT WITHIN REACH. BED IN LOWEST POSITION.
[2019-01-15 20:55] VITALS: BP 115/51
--- NOTE | 2019-01-15 21:50 | NUR ---
PT GOT OUT OF BED WITHOUT CALLING ANY ASSISTANCE.PT WITH UNSTEADY GAIT, HIGH RISK FOR FALL, INSRUCTED TO SATY IN BED , PT IS CONTACT ISOLATION DUE TO E-COLIBLOOD/URINE, BUT NO AVAIL. CONTINUE TO DO FREQUENT VISUAL CHECK.
--- NOTE | 2019-01-15 22:00 | NUR ---
HS SNACK GIVEN REQUESTED, TOLERATING WELL. NO NAUSEA/VOMITING NOTED. ASSSITEDIN REPOSITIONING FOR COMFORT. KEPT CLEAN AND DRY.
--- NOTE | 2019-01-15 23:55 | NUR ---
C/O PAIN AT THE RIGHT HIP PAIN ON SCALE 4/10. NOROC 5/325MG PO PRN MEDICATION. HR =78/MIN. NO S/S OF ACUTE DISTRESS.
--- NOTE | 2019-01-16 01:00 | NUR ---
EYES CLOSED, NO FACIAL GRIMACING NOTED. RESPIRATION EVEN AND UNLABRED, APPARENTLY ASLEEP. BED IN LOWEST POSITION , CALL LIGHT WITHIN REACH.
--- NOTE | 2019-01-16 05:23 | NUR ---
DUE MEDICATION GIVEN AND WELL TOLERATED. DENEIS ANY DISCOMFORT AT THIS TIME. CALL LIGHT WITHIN REACH. ALL NEEDS ATTENDED.
[2019-01-16 05:45] VITALS: BP 128/67
--- NOTE | 2019-01-16 07:46 | NUR ---
RECEIVED BEDSIDE REPORT FROM KINDERGARTEN AIDE NURSE. PATIENT IS STABLE. NO SIGNS OF APPARENT SOB. PATIEINT DENIES PAIN AT THIS TIME. PATIENT IS ON ROOM AIR. PATIENT IS S/P RIGHT HIP ORIF. IN BED IWTH TRAPEZE AND ABDUCTOR PILLOW. PATIENT IS CURRENTLY REFUSING ABDUCTOR PILLOW. I ADVISED ON THE RISKS OF NOT USING ABDUCTOR PILLOW STILL REFUSED. WILL CONTINUE TO ENCOURAGE USE OF ABDUCTOR PILLOW. FOLLEY CATH IN PLACE DRAINING YELLOW URINE. SURGICAL INCISION TO RIGHT HIP HAS DRESSING CDI. IV TO LFA IS INTACT, NO SIGNS OF REDNESS NOTED. QUESTIONS AND CONCERNS ADDRESSED. SAFETY PRECAUTIONS IN PLACE.
--- NOTE | 2019-01-16 08:52 | NUR ---
ADMINISTERED MORNING MEDS. PATIENT TOLORATED WELL. PATIENT REFUSED ABDUCTOR PILLOW AT THIS TIME. QUESTIONS AND CONCERNS ADDRESSED. SAFETY PRECAUTIONS IN PLACE.
[2019-01-16 10:16] VITALS: BP 120/55
--- NOTE | 2019-01-16 10:40 | NUR ---
PHYSICAL THERAPY AT BEDSIDE, PER PT PATIETN AMBULATED FO APPROX 15-20 FEET. TOPLORATED WELL. NO PAIN AT THIS TIME. PT SAT PATIENT IN BEDSIDE CHAIR. PATIENT IS COMFORTABLE AND STABLE WILL STAY IN THE CHAIR FOR A WHILE. SSAFETY PRECAUTIONS IN PLACE.
--- NOTE | 2019-01-16 12:54 | NUR ---
PATIENT IS STABLE, STILL SITTING IN BEDSIDE CHAIR. PATIENT WOULD LIKE TO CONTINUE TO SIT IN BED SIDE CHAIR LONGER. SAFETY PRECAUTIONS IN PLACE. PATIENT DENIES PAIN AT THIS TIME. PATIENT DENIES OTHER NEEDS AT THIS TIME.
--- NOTE | 2019-01-16 13:17 | NUR ---
Per Dr. Hooker patient can be transferred to sn[facility] today. Attending nurse Branden made aware.
[2019-01-16 13:19] VITALS: BP 117/54
[2019-01-16 13:52] VITALS: BP 117/54
--- NOTE | 2019-01-16 14:35 | NUR ---
PATIENT IS SITTING IN BEDSIDE CHAIR COMFORTABLY, SHE DECLIED BEING PLACED BACK IN BED, SHE WASHED HER TEETH AND IS FEELING WELL. PATIETN DENIES PAIN AT THIS TIME. THERE ARE NO APPARENT SIGNS OF SOB. ALL QUESTIONS AND CONCERNS ADRESSED, SAFETY PRECAUTIONS IN PLACE.
--- NOTE | 2019-01-16 14:41 | NUR ---
CALLED J[facility] TO GIVE REPORT FOR TRANSFER. REPORT GIVEN TO JASVIR MANCIA.
--- NOTE | 2019-01-16 15:58 | NUR ---
[facility]. PATIETN IS STABLE, NO APPARETN SIGNS OF SOB, PATIENT DENIES PAIN AT THIS TIME. ALFREDO CATH HAS BEEN DC WITH 1000 ML OF URINE, ID BANDM ANDIV WAS REMOVED, TELE WAS REMOVED AND RETURNED. ALL PERSONAL BELONGINGS WITH PATIENT. REPORT HAS BEEN GIVEN TO RECEIVEING NURSE.
--- NOTE | 2019-01-17 07:28 | NUR ---
PHYSICAL THERAPY DAILY NOTES CO-SIGN All documentation done by the Logistics Planning Engineer for 01/17/19 has been reviewed. I agree with the documentation. Reviewed/Co-Signed by: Daphnie Frazier PT Documentation Done by:GOSIA VALDES PTA FOR 01/16/19
--- NOTE | 2019-01-17 07:33 | NUR ---
PHYSICAL THERAPY DAILY NOTES CO-SIGN All documentation done by the Vending Technician for 01/17/19 has been reviewed. I agree with the documentation. Reviewed/Co-Signed by: Daphnie Frazier PT Documentation Done by:GOSIA VALDES GLOBAL MARKETING INTERN FOR 01/16/19 BID TX SESSION
== END 2019-01-16 16:05 | DRG 470 ==
LOC: ED 23:20 → DU 01-08 03:34
PROVIDERS: Emergency Medicine; Internal Medicine; Neuromusculoskeletal Medicine, Sports Medicine; ADMIT Internal Medicine
PROC: 0SRR01A Replacement of Right Hip Joint, Femoral Surface with Metal Synthetic Substitute, Uncemented, Open Approach (ICD-10-PCS; principal; 2019-01-10 13:00)
DX: S72.011A Unspecified intracapsular fracture of right femur, initial encounter for closed fracture (principal); I11.0 Hypertensive heart disease with heart failure; I50.9 Heart failure, unspecified; I48.2 Chronic atrial fibrillation; E87.6 Hypokalemia; I27.20 Pulmonary hypertension, unspecified; I25.10 Atherosclerotic heart disease of native coronary artery without angina pectoris; I34.0 Nonrheumatic mitral (valve) insufficiency; I35.1 Nonrheumatic aortic (valve) insufficiency; M19.90 Unspecified osteoarthritis, unspecified site; W18.39XA Other fall on same level, initial encounter; Y92.018 Other place in single-family (private) house as the place of occurrence of the external cause; Z79.01 Long term (current) use of anticoagulants; Z68.20 Body mass index [BMI] 20.0-20.9, adult
CPT/HCPCS: 82962; 84439; 97110-GP; 97116-GP; 97530-GP; C1776; J0690; J1644; J1885; J2250; J2270; J3010; J3490; J7050; J7120; Q0092